=== PATIENT | female | born 1950 | race Two or more races ===

== ENCOUNTER 2019-04-06 20:50 | Inpatient (IN) | payer MEDICARE, OTHER ==
[~2019-04-06] VITALS: Ht 157.5 cm; Wt 67.5 kg
[2019-04-06] MEDS ORDERED: SODI650T PO (22:05)
[2019-04-06] MEDS ORDERED: CARV-39 PO (22:05)
[2019-04-06] MEDS ORDERED: TORS20TA2 PO (22:05)
[2019-04-06] MEDS ORDERED: OMEP-110 PO (22:05)
[2019-04-06] MEDS ORDERED: DOCU-131 PO (22:05)
[2019-04-06] MEDS ORDERED: LEVO112T4 PO (22:05)
[2019-04-06] MEDS ORDERED: SITA50TA PO (22:05)
[2019-04-06] MEDS ORDERED: LISI40TA PO (22:05)
[2019-04-06] MEDS ORDERED: FERR324T5 PO (22:05)
[2019-04-06] MEDS ORDERED: PRAV10TA2 PO (22:05)
[2019-04-06] MEDS ORDERED: hydrALAzine 20 MG/ML, 1ML ONE (22:18)
--- NOTE | 2019-04-06 22:26 | NUR ---
PRESENT TO TRIAGE ACCOMAPANIED BY FAMILY. C/O PRESSURE ON HER EYES. BP IN 200'S AT HOME.DENIES CP/ SOB. DENIES HEADACHE. PT WAS SEEN AT [facility] FOR SAME LAST WEEK AND WAS HOSPITALIZED FOR 3 DAYS. PIV PLACED. PT MEDICATED FOR BP. OTHER VSS. CALL LIGHT IN REACH
[2019-04-06] MEDS ORDERED: SODIUM CHLORIDE FLUSH 10ML SYR IVF ONE (22:30)
[2019-04-06] MEDS ORDERED: hydrALAzine 20 MG/ML, 1ML IV ONE (22:30)
[2019-04-06 22:38] LABS: BASOPHILS # (AUTO) 0.02 x10^3/uL (0-0.1); BASOPHILS % (AUTO) 0 % (0-1); EOSINOPHILS # (AUTO) 0.09 x10^3/uL (0-0.4); EOSINOPHILS % (AUTO) 2 % (1-7); LYMPHOCYTES # (AUTO) 1.61 x10^3/uL (1-3.4); LYMPHOCYTES % (AUTO) 32 % (22-44); MD NO; MEAN CORPUSCULAR HEMOGLOBIN 34.1 pg (27.0-34.8); MEAN CORPUSCULAR HGB CONC 34.5 g/dL (32.4-35.8); MEAN PLATELET VOLUME 8.2 fL (7.4-10.4); MONOCYTES # (AUTO) 0.27 x10^3/uL (0.2-0.8); MONOCYTES % (AUTO) 5 % (2-9); NEUTROPHILS # (AUTO) 3.08 x10^3/uL (1.8-6.8); NEUTROPHILS % (AUTO) 61 % (42-75); PLATELET COUNT 173 x10^3/uL (130-400); RED CELL DISTRIBUTION WIDTH 14.2 % (9.6-15.2)
[2019-04-06 22:52] LABS: ALANINE AMINOTRANSFERASE 23 U/L (12-78); ALBUMIN 2.9 g/dL (3.4-5.0); ANION GAP 7 mmol/L (5-15); CALCIUM 8.4 mg/dL (8.5-10.1); CHLORIDE 111 mmol/L (98-107)
[2019-04-06 22:56] LABS: ALKALINE PHOSPHATASE 149 U/L (45-117); BILIRUBIN,TOTAL 0.3 mg/dL (0.2-1.0); TOTAL PROTEIN 7.2 g/dL (6.4-8.2); TROPONIN I < 0.015 ng/mL (0.000-0.045)
[2019-04-06] MEDS ORDERED: SODIUM CHLORIDE 0.9% 1,000ML IVBOLUS ONE (23:30)
[2019-04-07] MEDS ORDERED: SODIUM CHLORIDE 0.9% 1,000 ML IV SCH (00:05)
[2019-04-07] MEDS ORDERED: ONDANSETRON 2MG/ML, 2ML IVPush PRN (00:30)
[2019-04-07] MEDS ORDERED: ACETAMINOPHEN 325 MG TABLET PO PRN ×2 (00:30→08:30)
[2019-04-07] MEDS ORDERED: PHARMACY MAY ADJ FOR RENAL FX MC PRN (00:30)
[2019-04-07] MEDS ORDERED: morphine SULFATE 10 MG/ML, 1ML IVPush PRN (00:30)
[2019-04-07] MEDS: SODIUM BICARBONATE 650 MG TABLET PO SCH ×4 (00:57→19:44)
[2019-04-07] MEDS: HEPARIN 5,000 UNITS/ML, 1ML SQ SCH ×3 (00:57→17:08)
[2019-04-07 01:02] LABS: HEMOGLOBIN A1C 4.6 % (4.2-6.3)
[2019-04-07 01:06] VITALS: BP 125/70
[2019-04-07 01:16] LABS: FREE T4 (FREE THYROXINE) 0.88 ng/dL (0.76-1.46)
[2019-04-07 01:45] LABS: MICROSCOPIC AUTO
[2019-04-07 01:46] LABS: CULTURE INDICATED? NO
[2019-04-07 01:51] LABS: CHLORIDE,URINE RANDOM 63 mmol/L; POTASSIUM,URINE RANDOM 12 mmol/L; SODIUM,URINE RANDOM 59 mmol/L
[2019-04-07 01:56] LABS: CREATININE,URINE RANDOM < 13.00 mg/dL
[2019-04-07] MEDS: LEVOTHYROXINE 112 MCG TABLET PO SCH (05:34)
[2019-04-07 06:29] LABS: ANION GAP 6 mmol/L (5-15); CALCIUM 8.4 mg/dL (8.5-10.1); CHLORIDE 114 mmol/L (98-107); CHOLESTEROL, TOTAL 130 mg/dL (140-239); CREATININE 2.68 mg/dL (0.55-1.02)
[2019-04-07 06:33] LABS: HDL CHOL % 20 % (28-40); HDL CHOLESTEROL (DIRECT) 26 mg/dL (40-60); LDL CHOLESTEROL,CALCULATED 46 mg/dL (54-169); LDL/HDL RATIO 1.8 (0.5-3.0); TRIGLYCERIDES 292 mg/dL (50-200); TROPONIN I 0.027 ng/mL (0.000-0.045); VLDL CHOLESTEROL 58 mg/dL (0-25)
[2019-04-07] MEDS ORDERED: INSULIN LISPRO 100 UNITS/ML, PEN SQ-INSULIN SCH (07:00)
[2019-04-07 08:10] VITALS: BP 145/74
[2019-04-07] MEDS: DOCUSATE 100 MG CAPSULE PO SCH (09:00)
[2019-04-07] MEDS: CARVEDILOL 25 MG TABLET PO SCH ×2 (09:00→19:44)
[2019-04-07 12:29] LABS: TROPONIN I 0.036 ng/mL (0.000-0.045)
[2019-04-07 13:38] VITALS: BP 155/74
[2019-04-07] MEDS ORDERED: INSU100I13 SQ-INSULIN (17:07)
[2019-04-07 18:56] VITALS: BP 155/68
[2019-04-07] MEDS: PRAVASTATIN 20 MG TABLET PO SCH (19:44)
[2019-04-08] VITALS (9 sets, daily range): BP systolic 126–177; BP diastolic 64–76
[2019-04-08] MEDS ORDERED: SODIUM CHLORIDE 0.9% 1,000 ML IV SCH (00:05)
[2019-04-08] MEDS: HEPARIN 5,000 UNITS/ML, 1ML SQ SCH ×4 (00:32→21:39)
[2019-04-08] MEDS: hydrALAzine 20 MG/ML, 1ML IVPush PRN ×2 (00:42→13:27)
[2019-04-08] MEDS: LEVOTHYROXINE 112 MCG TABLET PO SCH (05:34)
[2019-04-08 05:59] LABS: MEAN CORPUSCULAR HEMOGLOBIN 33.5 pg (27.0-34.8); MEAN CORPUSCULAR HGB CONC 33.5 g/dL (32.4-35.8); MEAN CORPUSCULAR VOLUME 100.1 fL (80-100); MEAN PLATELET VOLUME 8.4 fL (7.4-10.4); PLATELET COUNT 148 x10^3/uL (130-400); RED BLOOD COUNT 2.25 x10^6/uL (3.82-5.3); RED CELL DISTRIBUTION WIDTH 14.4 % (9.6-15.2)
[2019-04-08 06:00] LABS: ANION GAP 6 mmol/L (5-15); CALCIUM 7.9 mg/dL (8.5-10.1); CHLORIDE 122 mmol/L (98-107); CREATININE 2.51 mg/dL (0.55-1.02)
[2019-04-08 06:23] LABS: BASOPHILS # (AUTO) 0.02 x10^3/uL (0-0.1); BASOPHILS % (AUTO) 1 % (0-1); EOSINOPHILS # (AUTO) 0.08 x10^3/uL (0-0.4); EOSINOPHILS % (AUTO) 2 % (1-7); LYMPHOCYTES # (AUTO) 1.69 x10^3/uL (1-3.4); LYMPHOCYTES % (AUTO) 38 % (22-44); MD SCAN; MONOCYTES # (AUTO) 0.29 x10^3/uL (0.2-0.8); MONOCYTES % (AUTO) 7 % (2-9); NEUTROPHILS # (AUTO) 2.32 x10^3/uL (1.8-6.8); NEUTROPHILS % (AUTO) 53 % (42-75)
[2019-04-08] MEDS: DOCUSATE 100 MG CAPSULE PO SCH (08:53)
[2019-04-08] MEDS: CARVEDILOL 25 MG TABLET PO SCH ×2 (08:53→21:39)
[2019-04-08] MEDS: SODIUM BICARBONATE 650 MG TABLET PO SCH ×3 (08:53→21:40)
[2019-04-08] MEDS: AMLODIPINE 5 MG TABLET PO SCH ×2 (10:20→21:39)
[2019-04-08 18:43] LABS: BASOPHILS # (AUTO) 0.02 x10^3/uL (0-0.1); BASOPHILS % (AUTO) 0 % (0-1); EOSINOPHILS # (AUTO) 0.05 x10^3/uL (0-0.4); EOSINOPHILS % (AUTO) 1 % (1-7); LYMPHOCYTES % (AUTO) 38 % (22-44); MD NO; MEAN CORPUSCULAR HEMOGLOBIN 33.9 pg (27.0-34.8); MEAN CORPUSCULAR HGB CONC 33.7 g/dL (32.4-35.8); MEAN CORPUSCULAR VOLUME 100.6 fL (80-100); MEAN PLATELET VOLUME 8.4 fL (7.4-10.4); MONOCYTES # (AUTO) 0.27 x10^3/uL (0.2-0.8); MONOCYTES % (AUTO) 6 % (2-9); NEUTROPHILS # (AUTO) 2.43 x10^3/uL (1.8-6.8); NEUTROPHILS % (AUTO) 54 % (42-75); PLATELET COUNT 155 x10^3/uL (130-400); RED BLOOD COUNT 2.27 x10^6/uL (3.82-5.3); RED CELL DISTRIBUTION WIDTH 14.5 % (9.6-15.2)
[2019-04-08] MEDS: PRAVASTATIN 20 MG TABLET PO SCH (21:39)
[2019-04-08] MEDS: SODIUM CHLORIDE 0.9% 1,000 ML IV SCH (21:40)
[2019-04-09 01:22] VITALS: BP 133/69
[2019-04-09 05:23] LABS: MEAN CORPUSCULAR HEMOGLOBIN 33.3 pg (27.0-34.8); MEAN CORPUSCULAR HGB CONC 33.1 g/dL (32.4-35.8); MEAN CORPUSCULAR VOLUME 100.8 fL (80-100); MEAN PLATELET VOLUME 8.4 fL (7.4-10.4); PLATELET COUNT 139 x10^3/uL (130-400); RED BLOOD COUNT 2.16 x10^6/uL (3.82-5.3); RED CELL DISTRIBUTION WIDTH 14.5 % (9.6-15.2)
[2019-04-09 05:29] LABS: CHLORIDE 123 mmol/L (98-107)
[2019-04-09] MEDS: HEPARIN 5,000 UNITS/ML, 1ML SQ SCH ×3 (05:34→21:37)
[2019-04-09] MEDS: LEVOTHYROXINE 112 MCG TABLET PO SCH (05:34)
[2019-04-09 05:36] LABS: ALANINE AMINOTRANSFERASE 13 U/L (12-78); ALBUMIN 2.2 g/dL (3.4-5.0); ALKALINE PHOSPHATASE 110 U/L (45-117); ANION GAP 5 mmol/L (5-15); BILIRUBIN,TOTAL 0.2 mg/dL (0.2-1.0); CREATININE 2.27 mg/dL (0.55-1.02); TOTAL PROTEIN 5.7 g/dL (6.4-8.2)
[2019-04-09 05:57] LABS: BASOPHILS # (AUTO) 0.02 x10^3/uL (0-0.1); BASOPHILS % (AUTO) 0 % (0-1); EOSINOPHILS # (AUTO) 0.06 x10^3/uL (0-0.4); EOSINOPHILS % (AUTO) 1 % (1-7); LYMPHOCYTES # (AUTO) 1.68 x10^3/uL (1-3.4); LYMPHOCYTES % (AUTO) 39 % (22-44); MD SCAN; MONOCYTES % (AUTO) 7 % (2-9); NEUTROPHILS # (AUTO) 2.29 x10^3/uL (1.8-6.8); NEUTROPHILS % (AUTO) 53 % (42-75)
[2019-04-09 07:50] VITALS: BP 147/73
[2019-04-09] MEDS: AMLODIPINE 5 MG TABLET PO SCH ×2 (08:19→20:22)
[2019-04-09] MEDS: SODIUM BICARBONATE 650 MG TABLET PO SCH ×3 (08:19→20:22)
[2019-04-09] MEDS: DOCUSATE 100 MG CAPSULE PO SCH (08:19)
[2019-04-09] MEDS: CARVEDILOL 25 MG TABLET PO SCH ×2 (08:19→20:22)
[2019-04-09] MEDS: SODIUM CHLORIDE 0.9% 1,000 ML IV SCH ×2 (08:24→15:48)
[2019-04-09] MEDS: INSULIN LISPRO 100 UNITS/ML, PEN SQ-INSULIN SCH ×3 (11:30→20:17)
[2019-04-09 13:44] LABS: OCCULT BLOOD NEGATIVE (NEGATIVE)
[2019-04-09 13:56] VITALS: BP 135/62
[2019-04-09 15:53] VITALS: BP 149/74
[2019-04-09 18:36] LABS: BASOPHILS # (AUTO) 0.04 x10^3/uL (0-0.1); BASOPHILS % (AUTO) 1 % (0-1); EOSINOPHILS # (AUTO) 0.07 x10^3/uL (0-0.4); EOSINOPHILS % (AUTO) 2 % (1-7); LYMPHOCYTES # (AUTO) 1.67 x10^3/uL (1-3.4); LYMPHOCYTES % (AUTO) 37 % (22-44); MD SCAN; MEAN CORPUSCULAR HEMOGLOBIN 33.8 pg (27.0-34.8); MEAN CORPUSCULAR HGB CONC 33.7 g/dL (32.4-35.8); MEAN CORPUSCULAR VOLUME 100.2 fL (80-100); MEAN PLATELET VOLUME 8.3 fL (7.4-10.4); MONOCYTES # (AUTO) 0.28 x10^3/uL (0.2-0.8); MONOCYTES % (AUTO) 6 % (2-9); NEUTROPHILS # (AUTO) 2.44 x10^3/uL (1.8-6.8); NEUTROPHILS % (AUTO) 54 % (42-75); PLATELET COUNT 149 x10^3/uL (130-400); RED BLOOD COUNT 2.19 x10^6/uL (3.82-5.3); RED CELL DISTRIBUTION WIDTH 14.2 % (9.6-15.2)
[2019-04-09 19:41] VITALS: BP_SYST 174; BP_SYST 192; BP_DIAS 73; BP_DIAS 77
[2019-04-09] MEDS: PRAVASTATIN 20 MG TABLET PO SCH (20:22)
[2019-04-09] MEDS ORDERED: INSULIN GLARGINE 100 UNITS/ML, PEN SQ-INSULIN SCH (21:00)
[2019-04-09 21:23] VITALS: BP_SYST 160; BP_SYST 161; BP_DIAS 67; BP_DIAS 72
[2019-04-10 00:28] VITALS: BP 155/68
[2019-04-10] MEDS: SODIUM CHLORIDE 0.9% 1,000 ML IV SCH (00:39)
[2019-04-10] MEDS: HEPARIN 5,000 UNITS/ML, 1ML SQ SCH ×2 (06:23→13:48)
[2019-04-10] MEDS ORDERED: LEVOTHYROXINE 125 MCG TABLET PO SCH (06:30)
[2019-04-10 06:33] LABS: MEAN CORPUSCULAR HGB CONC 33.9 g/dL (32.4-35.8); MEAN CORPUSCULAR VOLUME 100.3 fL (80-100); MEAN PLATELET VOLUME 7.9 fL (7.4-10.4); PLATELET COUNT 155 x10^3/uL (130-400); RED BLOOD COUNT 2.21 x10^6/uL (3.82-5.3); RED CELL DISTRIBUTION WIDTH 14.3 % (9.6-15.2)
[2019-04-10 06:40] LABS: ALBUMIN 2.2 g/dL (3.4-5.0); ANION GAP 5 mmol/L (5-15); CALCIUM 8.1 mg/dL (8.5-10.1); CHLORIDE 125 mmol/L (98-107)
[2019-04-10 06:43] LABS: ALANINE AMINOTRANSFERASE 20 U/L (12-78); ALKALINE PHOSPHATASE 113 U/L (45-117); BILIRUBIN,TOTAL 0.2 mg/dL (0.2-1.0); CREATININE 2.03 mg/dL (0.55-1.02); TOTAL PROTEIN 5.8 g/dL (6.4-8.2)
[2019-04-10 07:22] LABS: BASOPHILS # (AUTO) 0.02 x10^3/uL (0-0.1); BASOPHILS % (AUTO) 0 % (0-1); EOSINOPHILS # (AUTO) 0.04 x10^3/uL (0-0.4); EOSINOPHILS % (AUTO) 1 % (1-7); LYMPHOCYTES # (AUTO) 1.64 x10^3/uL (1-3.4); LYMPHOCYTES % (AUTO) 36 % (22-44); MD SCAN; MONOCYTES # (AUTO) 0.26 x10^3/uL (0.2-0.8); MONOCYTES % (AUTO) 6 % (2-9); NEUTROPHILS # (AUTO) 2.61 x10^3/uL (1.8-6.8); NEUTROPHILS % (AUTO) 57 % (42-75)
[2019-04-10] MEDS: INSULIN LISPRO 100 UNITS/ML, PEN SQ-INSULIN SCH ×2 (07:25→12:16)
[2019-04-10] MEDS: AMLODIPINE 5 MG TABLET PO SCH (08:37)
[2019-04-10] MEDS: DOCUSATE 100 MG CAPSULE PO SCH (08:37)
[2019-04-10] MEDS: CARVEDILOL 25 MG TABLET PO SCH (08:37)
[2019-04-10] MEDS: SODIUM BICARBONATE 650 MG TABLET PO SCH (08:37)
[2019-04-10 08:59] VITALS: BP 169/78
[2019-04-10] MEDS ORDERED: SODIUM CHLORIDE 0.45% 1,000 ML IV SCH (09:00)
[2019-04-10] MEDS ORDERED: AMLO-150 PO (10:54)
[2019-04-10] MEDS ORDERED: HYDR-3343 PO (10:54)
[2019-04-10] MEDS ORDERED: LEVO125T PO (10:54)
[2019-04-10] MEDS ORDERED: CLON0.1T22 PO (10:54)
[2019-04-10] MEDS ORDERED: FLU VAC QS 19-20(4YR UP)CEL/PF 0.5 ML IM-VACC ONE (12:30)
[2019-04-10 13:07] VITALS: BP 170/72
[2019-04-10 13:19] VITALS: BP 158/73
[2019-04-10] MEDS ORDERED: INSULIN GLARGINE 100 UNITS/ML, PEN SQ-INSULIN SCH (21:00)
== END 2019-04-10 13:58 | disposition home health service (06) | DRG 683 ==
LOC: ED 23:00 → EDIP 23:06 → 4NE 04-07 00:15 → 4WST 04-07 00:17
PROVIDERS: ADMIT Family Medicine; ATTEND Internal Medicine
DX: N17.0 Acute kidney failure with tubular necrosis (principal); E87.2 Acidosis; D63.1 Anemia in chronic kidney disease; E03.9 Hypothyroidism, unspecified; E11.22 Type 2 diabetes mellitus with diabetic chronic kidney disease; E78.5 Hyperlipidemia, unspecified; E83.51 Hypocalcemia; E87.5 Hyperkalemia; G47.00 Insomnia, unspecified; Z88.8 Allergy status to other drugs, medicaments and biological substances; I12.9 Hypertensive chronic kidney disease with stage 1 through stage 4 chronic kidney disease, or unspecified chronic kidney disease; N18.9 Chronic kidney disease, unspecified
CPT/HCPCS: 0399T; 36415; 71045; 76770; 80048; 80053; 80061; 81001; 82272; 82330; 82436; 82570; 82728; 82962; 83036; 83540; 83550; 83735; 83880; 84100; 84133; 84300; 84439; 84443; 84466; 84484; 85025; 90674; 93005; 93306; 96374; 99285; G0378; J1644; J0360; J1815; J7030

== ENCOUNTER 2019-11-23 16:28 | Emergency (ER) | payer MEDICARE ==
[~2019-11-23] VITALS: Ht 157.5 cm; Wt 63.0 kg
[~2019-11-23 16:28] MED LIST: AMLO-150 PO; CARV-39 PO; CLON0.1T22 PO; DOCU-131 PO; FERR324T5 PO; HYDR-3343 PO; INSU100I13 SQ-INSULIN; LEVO112T4 PO; LEVO125T PO; LISI40TA PO; OMEP-110 PO; PRAV10TA2 PO; SITA50TA PO; SODI650T PO; TORS20TA2 PO
--- NOTE | 2019-11-23 17:32 | NUR ---
Pt arrives to ed with severe abd pain in epigastric are since saturday. Pt reports sudden onset and getting worse. Hx of pancreatitis. Pt denies trauma. Pt reports she has been eating light foods still but today the pain was unbareable. Pt does not drink. Pt connected to monitors and call light in reach. Awaiting further orders.
[2019-11-23] MEDS ORDERED: MORPHINE SULFATE 4 MG/ML, 1ML IVPush PRN (18:00)
[2019-11-23] MEDS ORDERED: MORPHINE SULFATE 4 MG/ML, 1ML ONE (18:00)
[2019-11-23] MEDS ORDERED: ONDANSETRON 2MG/ML, 2ML IVPush ONE (18:00)
[2019-11-23] MEDS ORDERED: SODIUM CHLORIDE FLUSH 10ML SYR IVF ONE (18:00)
[2019-11-23] MEDS ORDERED: ONDANSETRON 2MG/ML, 2ML ONE (18:00)
[2019-11-23 18:22] LABS: BASOPHILS # (AUTO) 0.02 x10^3/uL (0-0.1); BASOPHILS % (AUTO) 0 % (0-1); EOSINOPHILS # (AUTO) 0.05 x10^3/uL (0-0.4); EOSINOPHILS % (AUTO) 1 % (1-7); LYMPHOCYTES # (AUTO) 0.87 x10^3/uL (1-3.4); LYMPHOCYTES % (AUTO) 15 % (22-44); MD NO; MEAN CORPUSCULAR HEMOGLOBIN 31.9 pg (27.0-34.8); MEAN CORPUSCULAR HGB CONC 33.9 g/dL (32.4-35.8); MONOCYTES # (AUTO) 0.37 x10^3/uL (0.2-0.8); MONOCYTES % (AUTO) 6 % (2-9); NEUTROPHILS # (AUTO) 4.52 x10^3/uL (1.8-6.8); NEUTROPHILS % (AUTO) 78 % (42-75); PLATELET COUNT 158 x10^3/uL (130-400); RED BLOOD COUNT 2.63 x10^6/uL (3.82-5.3); RED CELL DISTRIBUTION WIDTH 15.7 % (9.6-15.2)
--- NOTE | 2019-11-23 18:26 | NUR ---
Pt medicated for pain, pt given morphine slow push. Pt tolerated well.
[2019-11-23 18:32] LABS: ALANINE AMINOTRANSFERASE 33 U/L (12-78); ALBUMIN 2.8 g/dL (3.4-5.0); ANION GAP 6 mmol/L (5-15); CALCIUM 8.9 mg/dL (8.5-10.1); CHLORIDE 112 mmol/L (98-107); CREATININE 3.06 mg/dL (0.55-1.02)
[2019-11-23 18:34] LABS: ALKALINE PHOSPHATASE 155 U/L (45-117); BILIRUBIN,TOTAL 0.3 mg/dL (0.2-1.0); TOTAL PROTEIN 7.1 g/dL (6.4-8.2)
--- NOTE | 2019-11-23 18:58 | NUR ---
1st liter of fluids started on patient.
--- NOTE | 2019-11-23 19:38 | NUR ---
Pt to US
--- NOTE | 2019-11-23 19:56 | NUR ---
Second liter of fluids started.
[2019-11-23] MEDS ORDERED: SODIUM CHLORIDE 0.9% 1,000ML IVBOLUS ONE ×2 (20:00)
[2019-11-23] MEDS ORDERED: MAALOX/HYOSCYAMINE/LIDOCAINE 45 ML BTL PO ONE (20:30)
[2019-11-23 20:35] VITALS: BP 148/82
[2019-11-23] MEDS ORDERED: MAALOX/HYOSCYAMINE/LIDOCAINE 45 ML BTL ONE (20:39)
--- NOTE | 2019-11-23 20:44 | NUR ---
Pt assisted to restroom and asked to collect urine sample.
[2019-11-23 20:56] LABS: ANION GAP 3 mmol/L (5-15); CALCIUM 8.1 mg/dL (8.5-10.1); CHLORIDE 117 mmol/L (98-107); CREATININE 2.91 mg/dL (0.55-1.02)
[2019-11-23 21:14] LABS: MICROSCOPIC AUTO
[2019-11-23] MEDS ORDERED: FUROSEMIDE 20 MG/2 ML ONE (21:16)
--- NOTE | 2019-11-23 21:24 | NUR ---
Robert castro md informed that patient is boderline hypoxic and patient reports she is very tired.
[2019-11-23] MEDS ORDERED: FUROSEMIDE 20 MG/2 ML IV ONE (21:30)
--- NOTE | 2019-11-23 22:12 | NUR ---
Pt placed back O2 2lnc.
--- NOTE | 2019-11-23 22:31 | NUR ---
MD Villafana spoke with patient, pt reports she feels better and is not short of breath. Pt is breathing less labored when sitting up. Pt spo2 between 88-91 on room air. Plan at this time is patient would like to go home. Pt has been given strict parameters to return to the ED if she develops and new sympotms or concerns.
--- NOTE | 2019-11-23 22:51 | NUR ---
Patient/Caregiver given discharge instructions and they have confirmed that they understand the instructions. Patient ambulatory with steady gait.
== END 2019-11-23 22:53 | disposition home or self-care (01) ==
LOC: ED 18:36
DX: R10.11 Right upper quadrant pain (principal); R10.13 Epigastric pain; R10.12 Left upper quadrant pain; E11.65 Type 2 diabetes mellitus with hyperglycemia; R94.4 Abnormal results of kidney function studies; R09.02 Hypoxemia; E03.9 Hypothyroidism, unspecified; I10 Essential (primary) hypertension; E78.5 Hyperlipidemia, unspecified
CPT/HCPCS: 36415; 71045; 76700; 80048; 80053; 81001; 83690; 85025; 96361; 96374; 96375; 99285; J1940; J2270; J2405; J7030

== ENCOUNTER 2020-04-01 14:40 | Emergency (ER) | payer MEDICARE ==
[~2020-04-01] VITALS: Ht 157.5 cm; Wt 63.9 kg
[2020-04-01 14:45] VITALS: BP 147/66
--- NOTE | 2020-04-01 16:10 | NUR ---
SLOT ROUTER: PT TO ROOM FROM BILL BURR
--- NOTE | 2020-04-01 17:37 | NUR ---
DR. DOMINGO AT BEDSIDE EXPLAINING PLAN OF CARE TO FAMILY MEMBER, AND THAT THE PATIENT'S BLOOD FLOW IN HER RIGHT ARM IS OK AND THAT SHE MAY GO HOME, AND THAT SHE NEEDS TO KEEP AN EYE ON HER SYMPTOMS AND FOLLOW-UP NEEDED FOR WORSENING SYMPTOMS.
[2020-04-01 17:49] LABS: BASOPHILS % (AUTO) 1 % (0-1); EOSINOPHILS % (AUTO) 2 % (1-7); LYMPHOCYTES % (AUTO) 27 % (22-44); MEAN CORPUSCULAR HEMOGLOBIN 29.1 pg (27.0-34.8); MEAN CORPUSCULAR HGB CONC 32.8 g/dL (32.4-35.8); MEAN PLATELET VOLUME 7.7 fL (7.4-10.4); MONOCYTES % (AUTO) 10 % (2-9); NEUTROPHILS % (AUTO) 61 % (42-75); PLATELET COUNT 151 x10^3/uL (130-400); RED BLOOD COUNT 3.27 x10^6/uL (3.82-5.3); RED CELL DISTRIBUTION WIDTH 16.2 % (9.6-15.2)
[2020-04-01 18:00] LABS: MD NO
[2020-04-01 18:03] LABS: ANION GAP 7 mmol/L (5-15); CALCIUM 8.6 mg/dL (8.5-10.1); CHLORIDE 108 mmol/L (98-107); CREATININE 4.34 mg/dL (0.55-1.02)
--- NOTE | 2020-04-01 18:16 | NUR ---
Patient given discharge instructions and they have confirmed that they understand the instructions. Patient ambulatory with steady gait.
== END 2020-04-01 18:17 | disposition home or self-care (01) ==
LOC: ED 17:51
DX: G62.9 Polyneuropathy, unspecified (principal); I10 Essential (primary) hypertension; E11.9 Type 2 diabetes mellitus without complications; E78.5 Hyperlipidemia, unspecified; E05.90 Thyrotoxicosis, unspecified without thyrotoxic crisis or storm
CPT/HCPCS: 36415; 80048; 82040; 85025; 93970; 99284

== ENCOUNTER 2020-08-22 17:32 | Inpatient (IN) | payer MEDICARE ==
[~2020-08-22] VITALS: Ht 157.5 cm; Wt 63.8 kg
[~2020-08-22 17:32] MED LIST changes: -LISI40TA PO; +LISI40TA9 PO
[2020-08-22] MEDS ORDERED: SODIUM CHLORIDE FLUSH 10ML SYR IVF ONE (18:30)
[2020-08-22] MEDS ORDERED: ACETAMINOPHEN 325 MG TABLET ONE (18:57)
[2020-08-22] MEDS ORDERED: ACETAMINOPHEN 500 MG TABLET PO ONE (19:00)
[2020-08-22] MEDS ORDERED: ACETAMINOPHEN 500 MG TABLET ONE (19:00)
--- NOTE | 2020-08-22 19:02 | NUR ---
IV PLACED. PT MEDICATED FOR ABD PAIN/HEADACHE. PT STATES SHE CAN'T VOID FOR URINE SAMPLE NOW. WATER PROVIDED. PT AND DAUGHTER UNDERSTAND POC.
[2020-08-22 19:05] LABS: BASOPHILS % (AUTO) 0 % (0-1); EOSINOPHILS % (AUTO) 1 % (1-7); LYMPHOCYTES % (AUTO) 20 % (22-44); MEAN CORPUSCULAR HEMOGLOBIN 29.6 pg (27.0-34.8); MEAN PLATELET VOLUME 8.8 fL (7.4-10.4); MONOCYTES % (AUTO) 6 % (2-9); NEUTROPHILS % (AUTO) 72 % (42-75); PLATELET COUNT 158 x10^3/uL (130-400); RED BLOOD COUNT 2.99 x10^6/uL (3.82-5.3); RED CELL DISTRIBUTION WIDTH 18.1 % (9.6-15.2)
[2020-08-22 19:06] LABS: MD NO
[2020-08-22 19:12] LABS: ALANINE AMINOTRANSFERASE 29 U/L (12-78); ALBUMIN 3.2 g/dL (3.4-5.0); ANION GAP 10 mmol/L (5-15); CALCIUM 8.5 mg/dL (8.5-10.1); CHLORIDE 99 mmol/L (98-107)
[2020-08-22 19:17] LABS: ALKALINE PHOSPHATASE 134 U/L (45-117); BILIRUBIN,TOTAL 0.3 mg/dL (0.2-1.0); CREATININE 4.77 mg/dL (0.55-1.02)
[2020-08-22] MEDS ORDERED: SODIUM CHLORIDE 0.9% 1,000ML IVBOLUS ONE (19:30)
--- NOTE | 2020-08-22 20:01 | NUR ---
PT RESTING IN GURNEY, NO COMPLAINTS AT THIS TIME. 500ML IV BOLUS INFUSING. DAUGHTER REMAINS AT BS. RV'WD POC WITH PT AND DAUGHTER.
[2020-08-22 20:06] LABS: MICROSCOPIC AUTO
[2020-08-22] MEDS ORDERED: FUROSEMIDE 40 MG/4 ML ONE (20:20)
[2020-08-22] MEDS ORDERED: FUROSEMIDE 40 MG/4 ML IV ONE (20:30)
[2020-08-22] MEDS ORDERED: SODIUM CHLORIDE FLUSH 10ML SYR IVF PRN (20:30)
--- NOTE | 2020-08-22 20:30 | NUR ---
DISCUSSED POC WITH ERP. WILL STOP 500ML IV BOLUS NOW (ONLY 100ML INFUSED), AND GIVE 80MG LASIX SLOW IVP. COMMUNICATED POC, INCLUDING PLAN FOR ADMISSION, WITH PT AND DAUGHTER USING Fromography VIDEO OYSTER CULTIVATOR.
[2020-08-22 21:15] VITALS: BP 144/67
[2020-08-22] MEDS ORDERED: hydrALAzine 20 MG/ML, 1ML IVPush PRN (22:30)
[2020-08-22] MEDS ORDERED: ONDANSETRON 2MG/ML, 2ML IVPush PRN (22:30)
[2020-08-22] MEDS ORDERED: HYDROcodone/APAP 5/325 TABLET PO PRN (22:30)
[2020-08-22] MEDS ORDERED: MELATONIN 5 MG TABLET PO PRN (22:30)
[2020-08-22] MEDS ORDERED: ACETAMINOPHEN 325 MG TABLET PO PRN (22:30)
[2020-08-22] MEDS: HEPARIN 5,000 UNITS/ML, 1ML SQ SCH (22:56)
[2020-08-22] MEDS: SODIUM CHLORIDE FLUSH 10ML SYR IVF SCH (22:57)
[2020-08-22] MEDS ORDERED: DEXTROSE 4 GM TAB.CHEW PO PRN (23:00)
[2020-08-22] MEDS ORDERED: DEXTROSE 50%, 50ML SYRINGE IVPush PRN (23:00)
[2020-08-22] MEDS ORDERED: GLUCAGON 1 MG IM PRN (23:00)
[2020-08-22 23:43] LABS: TROPONIN I < 0.015 ng/mL (0.000-0.045)
[2020-08-23 01:21] VITALS: BP 143/65
[2020-08-23 05:34] LABS: BASOPHILS % (AUTO) 1 % (0-1); EOSINOPHILS % (AUTO) 1 % (1-7); LYMPHOCYTES % (AUTO) 30 % (22-44); MEAN CORPUSCULAR HEMOGLOBIN 29.5 pg (27.0-34.8); MEAN CORPUSCULAR HGB CONC 33.3 g/dL (32.4-35.8); MEAN PLATELET VOLUME 8.7 fL (7.4-10.4); MONOCYTES % (AUTO) 8 % (2-9); NEUTROPHILS % (AUTO) 60 % (42-75); PLATELET COUNT 137 x10^3/uL (130-400); RED BLOOD COUNT 2.83 x10^6/uL (3.82-5.3); RED CELL DISTRIBUTION WIDTH 17.8 % (9.6-15.2)
[2020-08-23 05:38] LABS: MD NO
[2020-08-23 05:45] LABS: ALANINE AMINOTRANSFERASE 23 U/L (12-78); ALBUMIN 2.9 g/dL (3.4-5.0); ANION GAP 10 mmol/L (5-15); CALCIUM 8.3 mg/dL (8.5-10.1); CHLORIDE 100 mmol/L (98-107)
[2020-08-23 05:53] LABS: ALKALINE PHOSPHATASE 112 U/L (45-117); BILIRUBIN,TOTAL 0.3 mg/dL (0.2-1.0); CHOL/HDL RATIO 2.9; CHOLESTEROL, TOTAL 66 mg/dL (140-239); CREATININE 4.78 mg/dL (0.55-1.02); HDL CHOL % 35 % (28-40); HDL CHOLESTEROL (DIRECT) 23 mg/dL (40-60); LDL CHOLESTEROL,CALCULATED 14 mg/dL (54-169); LDL/HDL RATIO 0.6 (0.5-3.0); TOTAL PROTEIN 6.5 g/dL (6.4-8.2); TRIGLYCERIDES 144 mg/dL (50-200); VLDL CHOLESTEROL 29 mg/dL (0-25)
[2020-08-23] MEDS: LEVOTHYROXINE 125 MCG TABLET PO SCH (06:13)
[2020-08-23] MEDS: HEPARIN 5,000 UNITS/ML, 1ML SQ SCH ×3 (06:13→22:18)
[2020-08-23] MEDS: INSULIN LISPRO 100 UNITS/ML, PEN SQ-INSULIN SCH ×4 (07:00→20:45)
[2020-08-23 07:21] VITALS: BP 148/69
[2020-08-23] MEDS: SODIUM CHLORIDE FLUSH 10ML SYR IVF SCH ×2 (09:00→21:00)
[2020-08-23] MEDS ORDERED: FUROSEMIDE 80 MG TABLET PO SCH (09:00)
[2020-08-23] MEDS ORDERED: FUROSEMIDE 40 MG/4 ML ONE (10:39)
[2020-08-23] MEDS ORDERED: FUROSEMIDE 100 MG/10 ML IV ONE (11:00)
[2020-08-23] MEDS: CARVEDILOL 25 MG TABLET PO SCH ×2 (11:21→21:07)
[2020-08-23] MEDS: SODIUM BICARBONATE 650 MG TABLET PO SCH ×3 (11:21→21:07)
[2020-08-23] MEDS: AMLODIPINE 5 MG TABLET PO SCH ×2 (11:21→21:07)
[2020-08-23 12:22] VITALS: BP 148/71
[2020-08-23 18:29] VITALS: BP 151/64
[2020-08-23] MEDS: INSULIN GLARGINE 100 UNITS/ML, PEN SQ-INSULIN SCH (22:18)
[2020-08-24 02:36] VITALS: BP 139/69
[2020-08-24 04:56] LABS: BASOPHILS % (AUTO) 1 % (0-1); EOSINOPHILS % (AUTO) 1 % (1-7); LYMPHOCYTES % (AUTO) 27 % (22-44); MEAN CORPUSCULAR HEMOGLOBIN 29.3 pg (27.0-34.8); MEAN CORPUSCULAR HGB CONC 33.5 g/dL (32.4-35.8); MEAN PLATELET VOLUME 8.7 fL (7.4-10.4); MONOCYTES % (AUTO) 9 % (2-9); NEUTROPHILS % (AUTO) 62 % (42-75); PLATELET COUNT 147 x10^3/uL (130-400); RED BLOOD COUNT 2.93 x10^6/uL (3.82-5.3); RED CELL DISTRIBUTION WIDTH 17.7 % (9.6-15.2)
[2020-08-24 05:05] LABS: ANION GAP 11 mmol/L (5-15); CALCIUM 8.4 mg/dL (8.5-10.1); CHLORIDE 101 mmol/L (98-107)
[2020-08-24 05:07] LABS: MD NO
[2020-08-24 05:09] LABS: % IRON SATURATION 28 % (20-55); ALANINE AMINOTRANSFERASE 23 U/L (12-78); ALKALINE PHOSPHATASE 115 U/L (45-117); BILIRUBIN,TOTAL 0.2 mg/dL (0.2-1.0); CREATININE 4.79 mg/dL (0.55-1.02); IRON LEVEL 69 mcg/dL (50-170); TOTAL IRON BINDING CAPACITY 250 mcg/dL (250-450); TOTAL PROTEIN 6.5 g/dL (6.4-8.2)
[2020-08-24] MEDS: HEPARIN 5,000 UNITS/ML, 1ML SQ SCH ×3 (06:22→22:30)
[2020-08-24] MEDS: LEVOTHYROXINE 125 MCG TABLET PO SCH (06:22)
[2020-08-24] MEDS: INSULIN LISPRO 100 UNITS/ML, PEN SQ-INSULIN SCH ×4 (07:00→21:11)
[2020-08-24 07:06] VITALS: BP 155/67
[2020-08-24] MEDS: AMLODIPINE 5 MG TABLET PO SCH ×2 (08:24→21:09)
[2020-08-24] MEDS: SODIUM BICARBONATE 650 MG TABLET PO SCH ×3 (08:24→21:09)
[2020-08-24] MEDS: CARVEDILOL 25 MG TABLET PO SCH ×2 (08:24→21:09)
[2020-08-24] MEDS: SODIUM CHLORIDE FLUSH 10ML SYR IVF SCH ×2 (08:24→21:10)
[2020-08-24 13:29] VITALS: BP 155/68
[2020-08-24] MEDS: OMEPRAZOLE 20 MG CAPSULE.DR PO SCH (18:25)
[2020-08-24 18:54] VITALS: BP 147/74
[2020-08-24 21:08] VITALS: BP 149/65
[2020-08-24] MEDS: FUROSEMIDE 40 MG TABLET PO SCH (21:09)
[2020-08-24] MEDS: INSULIN GLARGINE 100 UNITS/ML, PEN SQ-INSULIN SCH (21:12)
[2020-08-25 01:31] VITALS: BP 141/60
[2020-08-25 05:50] LABS: BASOPHILS % (AUTO) 1 % (0-1); EOSINOPHILS % (AUTO) 1 % (1-7); LYMPHOCYTES % (AUTO) 30 % (22-44); MEAN CORPUSCULAR HEMOGLOBIN 29.7 pg (27.0-34.8); MEAN CORPUSCULAR HGB CONC 33.6 g/dL (32.4-35.8); MEAN PLATELET VOLUME 8.7 fL (7.4-10.4); MONOCYTES % (AUTO) 11 % (2-9); NEUTROPHILS % (AUTO) 57 % (42-75); PLATELET COUNT 151 x10^3/uL (130-400); RED BLOOD COUNT 2.93 x10^6/uL (3.82-5.3); RED CELL DISTRIBUTION WIDTH 18.1 % (9.6-15.2)
[2020-08-25 05:51] LABS: MD NO
[2020-08-25 06:01] LABS: ALBUMIN 3.2 g/dL (3.4-5.0); ANION GAP 8 mmol/L (5-15); CALCIUM 8.4 mg/dL (8.5-10.1); CHLORIDE 105 mmol/L (98-107)
[2020-08-25 06:04] LABS: ALANINE AMINOTRANSFERASE 20 U/L (12-78); ALKALINE PHOSPHATASE 108 U/L (45-117); BILIRUBIN,TOTAL 0.3 mg/dL (0.2-1.0); CREATININE 4.78 mg/dL (0.55-1.02); TOTAL PROTEIN 6.6 g/dL (6.4-8.2)
[2020-08-25] MEDS: HEPARIN 5,000 UNITS/ML, 1ML SQ SCH (06:30)
[2020-08-25] MEDS: LEVOTHYROXINE 125 MCG TABLET PO SCH (06:38)
[2020-08-25 06:48] VITALS: BP 145/65
[2020-08-25] MEDS: INSULIN LISPRO 100 UNITS/ML, PEN SQ-INSULIN SCH ×2 (07:48→11:43)
[2020-08-25 08:44] VITALS: BP 151/62
[2020-08-25] MEDS: AMLODIPINE 5 MG TABLET PO SCH (08:50)
[2020-08-25] MEDS: SODIUM CHLORIDE FLUSH 10ML SYR IVF SCH (08:50)
[2020-08-25] MEDS: SODIUM BICARBONATE 650 MG TABLET PO SCH (08:50)
[2020-08-25] MEDS: CARVEDILOL 25 MG TABLET PO SCH (08:50)
[2020-08-25] MEDS: FUROSEMIDE 40 MG TABLET PO SCH (08:50)
[2020-08-25] MEDS: OMEPRAZOLE 20 MG CAPSULE.DR PO SCH (08:50)
[2020-08-25] MEDS ORDERED: FURO40TA6 PO (10:17)
[2020-08-25 10:55] LABS: OCCULT BLOOD NEGATIVE (NEGATIVE)
== END 2020-08-25 12:40 | disposition home health service (06) | DRG 291 ==
LOC: ED 22:22 → 4WST 22:24 → DCLOUNGE 08-25 12:30
PROVIDERS: ADMIT Internal Medicine; ATTEND Internal Medicine
DX: I13.2 Hypertensive heart and chronic kidney disease with heart failure and with stage 5 chronic kidney disease, or end stage renal disease (principal); I50.33 Acute on chronic diastolic (congestive) heart failure; N17.9 Acute kidney failure, unspecified; E87.0 Hyperosmolality and hypernatremia; E87.1 Hypo-osmolality and hyponatremia; E87.2 Acidosis; N18.5 Chronic kidney disease, stage 5; I42.9 Cardiomyopathy, unspecified; D63.8 Anemia in other chronic diseases classified elsewhere; E03.9 Hypothyroidism, unspecified; E11.22 Type 2 diabetes mellitus with diabetic chronic kidney disease; E78.5 Hyperlipidemia, unspecified; E87.5 Hyperkalemia; I07.1 Rheumatic tricuspid insufficiency; I27.20 Pulmonary hypertension, unspecified; Z79.4 Long term (current) use of insulin; Z79.890 Hormone replacement therapy; Z90.49 Acquired absence of other specified parts of digestive tract; Z79.899 Other long term (current) drug therapy; Z79.891 Long term (current) use of opiate analgesic; Z79.01 Long term (current) use of anticoagulants; Z88.8 Allergy status to other drugs, medicaments and biological substances; Z83.3 Family history of diabetes mellitus; Z82.49 Family history of ischemic heart disease and other diseases of the circulatory system; E11.21 Type 2 diabetes mellitus with diabetic nephropathy
CPT/HCPCS: 36415; 74022; 76700; 80053; 80061; 81001; 82272; 82728; 82962; 83036; 83540; 83550; 83690; 83735; 83880; 84100; 84443; 84484; 85025; 93005; 93306; 93356; 96361; 96374; 99291; G0378; J1644; J1940; J1815; J7030

== ENCOUNTER 2020-09-09 14:17 | Emergency (ER) | payer MEDICARE ==
[~2020-09-09] VITALS: Ht 157.5 cm; Wt 68.0 kg
[~2020-09-09 14:17] MED LIST changes: +FURO40TA6 PO
--- NOTE | 2020-09-09 15:00 | NUR ---
REWRITER: PT AMBULATORY TO ROOM FROM LOBBY AT THIS TIME WITH STEADY GAIT WITH PRIMARY RN VERITO
[2020-09-09] MEDS ORDERED: ONDANSETRON ODT 4 MG ONE (15:48)
[2020-09-09] MEDS ORDERED: ONDANSETRON ODT 4 MG PO ONE (16:00)
--- NOTE | 2020-09-09 16:18 | NUR ---
PT BACK FROM XRAY. PT AMBULATED TO RESTROOM WITH STEADY GAIT TO PROVIDE URINE SAMPLE. UA COLLECTED AND SENT TO LAB. LAB AT BEDSIDE.
[2020-09-09 16:29] LABS: BASOPHILS % (AUTO) 1 % (0-1); EOSINOPHILS % (AUTO) 1 % (1-7); LYMPHOCYTES % (AUTO) 19 % (22-44); MEAN CORPUSCULAR HEMOGLOBIN 29.7 pg (27.0-34.8); MEAN CORPUSCULAR HGB CONC 33.9 g/dL (32.4-35.8); MONOCYTES % (AUTO) 7 % (2-9); NEUTROPHILS % (AUTO) 73 % (42-75); PLATELET COUNT 136 x10^3/uL (130-400); RED BLOOD COUNT 2.92 x10^6/uL (3.82-5.3); RED CELL DISTRIBUTION WIDTH 17.4 % (9.6-15.2)
[2020-09-09 16:32] LABS: MD NO
[2020-09-09 16:37] LABS: ALBUMIN 3.2 g/dL (3.4-5.0); ANION GAP 10 mmol/L (5-15); CALCIUM 8.2 mg/dL (8.5-10.1); CHLORIDE 91 mmol/L (98-107)
[2020-09-09 16:38] LABS: MICROSCOPIC INDICATED
[2020-09-09 16:41] LABS: ALANINE AMINOTRANSFERASE 18 U/L (12-78); ALKALINE PHOSPHATASE 116 U/L (45-117); BILIRUBIN,TOTAL 0.3 mg/dL (0.2-1.0); CREATININE 5.45 mg/dL (0.55-1.02); TOTAL PROTEIN 6.8 g/dL (6.4-8.2)
--- NOTE | 2020-09-09 16:52 | NUR ---
ALL RESULTS ARE BACK AT THIS TIME. CHART UP FOR RECHECK.
--- NOTE | 2020-09-09 17:09 | NUR ---
RECEIVED N/O FOR CT.
--- NOTE | 2020-09-09 17:51 | NUR ---
PT AT CT
[2020-09-09 18:03] VITALS: BP 118/51
[2020-09-09] MEDS ORDERED: FURO40TA6 PO (18:08)
[2020-09-09] MEDS ORDERED: ATOR20TA37 PO (18:08)
[2020-09-09] MEDS ORDERED: SEVE800T7 PO (18:08)
--- NOTE | 2020-09-09 18:15 | NUR ---
ALL RESULTS ARE BACK AT THIS TIME. CHART UP FOR RECHECK.
== END 2020-09-09 19:07 | disposition home or self-care (01) ==
LOC: ED 15:30
DX: R10.13 Epigastric pain (principal); R11.2 Nausea with vomiting, unspecified; D53.9 Nutritional anemia, unspecified; E87.1 Hypo-osmolality and hyponatremia; E11.22 Type 2 diabetes mellitus with diabetic chronic kidney disease; I13.2 Hypertensive heart and chronic kidney disease with heart failure and with stage 5 chronic kidney disease, or end stage renal disease; I50.9 Heart failure, unspecified; N18.6 End stage renal disease; Z99.2 Dependence on renal dialysis; K21.9 Gastro-esophageal reflux disease without esophagitis; E03.9 Hypothyroidism, unspecified; E78.5 Hyperlipidemia, unspecified; Z90.49 Acquired absence of other specified parts of digestive tract; Z86.711 Personal history of pulmonary embolism
CPT/HCPCS: 36415; 74021; 74176; 80053; 81001; 83690; 85025; 87086; 93005; 99285; Q0162

== ENCOUNTER → 2020-11-29 | Outpatient (CLI) | payer MEDICARE ==
[~2020-11-29] MED LIST changes: +ATOR20TA37 PO; +SEVE800T7 PO
== END | disposition home or self-care (01) ==
LOC: CFH 15:36
PROVIDERS: ATTEND Family Medicine
DX: Z12.31 Encounter for screening mammogram for malignant neoplasm of breast (principal)
CPT/HCPCS: 77063; 77067

== ENCOUNTER 2020-12-07 10:45 | Emergency (ER) | payer MEDICARE ==
[~2020-12-07] VITALS: Ht 157.5 cm; Wt 60.4 kg
--- NOTE | 2020-12-07 11:54 | NUR ---
MUSCLE ACHES/CHILLS/WEAKNESS SINCE 6AM MISSED HD TODAY BC ABOVE (M/W/F) FSBS 324 PLACED ON TECHNICAL COMMUNICATION TEACHER ECG OBTAINED IN TRIAGE PIV PLACED FROM WHICH FULL SET OF LABS INCLUDING BLOOD CULTURES X 1 DRAWN
[2020-12-07] MEDS ORDERED: MORPHINE SULFATE 4 MG/ML, 1ML IVPush ONE ×2 (12:30→14:00)
[2020-12-07] MEDS ORDERED: ONDANSETRON 2MG/ML, 2ML ONE (12:31)
[2020-12-07] MEDS ORDERED: MORPHINE SULFATE 4 MG/ML, 1ML ONE (12:32)
[2020-12-07 12:42] LABS: BASOPHILS % (AUTO) 0 % (0-1); EOSINOPHILS % (AUTO) 0 % (1-7); LYMPHOCYTES % (AUTO) 12 % (22-44); MEAN CORPUSCULAR HEMOGLOBIN 33.3 pg (27.0-34.8); MEAN CORPUSCULAR HGB CONC 34.4 g/dL (32.4-35.8); MEAN PLATELET VOLUME 8.8 fL (7.4-10.4); MONOCYTES % (AUTO) 6 % (2-9); NEUTROPHILS % (AUTO) 82 % (42-75); PLATELET COUNT 136 x10^3/uL (130-400); RED CELL DISTRIBUTION WIDTH 14.8 % (9.6-15.2)
[2020-12-07 12:52] LABS: ALANINE AMINOTRANSFERASE 635 U/L (12-78); ALBUMIN 3.6 g/dL (3.4-5.0); ANION GAP 9 mmol/L (5-15); CALCIUM 9.4 mg/dL (8.5-10.1); CHLORIDE 93 mmol/L (98-107)
[2020-12-07 12:55] LABS: ALKALINE PHOSPHATASE 388 U/L (45-117); BILIRUBIN,TOTAL 0.6 mg/dL (0.2-1.0); TOTAL PROTEIN 8.3 g/dL (6.4-8.2)
[2020-12-07] MEDS ORDERED: ONDANSETRON 2MG/ML, 2ML IVPush ONE (13:00)
--- NOTE | 2020-12-07 13:03 | NUR ---
BLOOD CULTURES X 2 DRAWN WELL STRAITH CATH UA OBTAINED. LABS REVIEWED. ERP MADE AWARE OF LACTATE AND LFTS
--- NOTE | 2020-12-07 13:07 | NUR ---
ERP SUSPECTS PANCREATITUS THEREFORE NO NEED FOR 30MLKG OF FLUIDS AND ABX. INSTEAD TO TREAT PAIN, MAYBE FLUIDS SPARINGLY (DIALYSIS) NPO AND PAIN MEDS
[2020-12-07 13:12] LABS: MICROSCOPIC AUTO
[2020-12-07] MEDS ORDERED: SODIUM CHLORIDE FLUSH 10ML SYR IVF ONE (13:30)
[2020-12-07] MEDS ORDERED: SODIUM CHLORIDE 0.9%, 500ML IVBOLUS ONE (14:00)
[2020-12-07] MEDS ORDERED: OMNIPAQUE 350 MG/ML, 100ML BOTTLE ONE (14:07)
[2020-12-07] MEDS ORDERED: [UNRECOGNIZED DRUG - OTHER] (14:48)
[2020-12-07] MEDS ORDERED: FURO80TA77 PO (14:48)
--- NOTE | 2020-12-07 14:49 | NUR ---
WITH MED RECC. PATIENT TAKING LASIX 40MG BID AND LASIX 80- ONCE IN THE AM. ALSO PATIENT PRESENTED WITH TWO BOTTLE OF 25MG CARVEDILOL (MAYBE TAKING BOTH). PATIENT ALSO DID NOT PRESENT WITH IRON BOTTLE/BICABONATE TABLETS OR SEVELAMERE (SO ASSUMED NOPT TAKING) WITH REASSESSMENT PATIENT VERY COMFORTABLE POST 1 TIME DOSE OF 4MG OF MORPHINE UPDATED ON ESTIMATED POC
--- NOTE | 2020-12-07 15:21 | NUR ---
ERP MADE AWARE OF PATIENT LOW BLOOD PRESSURE (ESPECIALLY IN THE SETTING OF PATIENT THAT TAKES 5 BLOOD PRESSURE MEDS A DAY (HASNT SINCE YESTERDAY MORNING) ERP CONSIDERING PLAN
--- NOTE | 2020-12-07 16:14 | NUR ---
ROAD TEST SUSPRINSLY UNREMARKABLE. PO CHALLENGE UNREMARKABLE WELL
[2020-12-07 16:16] VITALS: BP 128/72
== END 2020-12-07 16:32 | disposition home or self-care (01) ==
LOC: ED 13:32
DX: R10.13 Epigastric pain (principal); R74.8 Abnormal levels of other serum enzymes; M79.10 Myalgia, unspecified site; M25.561 Pain in right knee; R94.31 Abnormal electrocardiogram [ECG] [EKG]; R42 Dizziness and giddiness; I10 Essential (primary) hypertension; E11.9 Type 2 diabetes mellitus without complications; K21.9 Gastro-esophageal reflux disease without esophagitis
CPT/HCPCS: 71045; 74177; 80053; 80074; 81001; 82962; 83605; 83690; 85025; 87040; 93005; 96361; 96374; 96375; 99285; J2270; J2405; J7040; Q9967